=== PATIENT | female | born 1970 | race Caucasian/White ===

== ENCOUNTER → 2024-03-19 11:18 | Outpatient (REF) | payer MEDICARE, OTHER, SELFPAY ==
[2024-03-19 14:54] LABS: Folate > 20.0 ng/ml (2.76-20); Vitamin B12 > 1000 pg/ml (239-931)
== END ==
LOC: REG 11:18
PROVIDERS: ATTENDING PHYSICIAN Psychiatry & Neurology Neurology; FAMILY PHYSICIAN Family Medicine
DX: G43.709 Chronic migraine without aura, not intractable, without status migrainosus (principal); M54.50 Low back pain, unspecified; G43.109 Migraine with aura, not intractable, without status migrainosus; M54.12 Radiculopathy, cervical region; M79.7 Fibromyalgia; F90.1 Attention-deficit hyperactivity disorder, predominantly hyperactive type; D51.8 Other vitamin B12 deficiency anemias; E55.9 Vitamin D deficiency, unspecified; D51.0 Vitamin B12 deficiency anemia due to intrinsic factor deficiency
CPT/HCPCS: 36415; 82607; 82746; 86340

== ENCOUNTER → 2024-03-26 11:16 | Outpatient (REF) | payer MEDICARE, OTHER, SELFPAY | LOC: HWRAD 11:16 | PROVIDERS: ATTENDING PHYSICIAN Registered Nurse Case Management; FAMILY PHYSICIAN Family Medicine | DX: Z13.820 Encounter for screening for osteoporosis (principal); Z12.31 Encounter for screening mammogram for malignant neoplasm of breast; Z78.0 Asymptomatic menopausal state | CPT/HCPCS: 77063; 77067; 77080 ==

== ENCOUNTER → 2024-04-28 10:10 | Outpatient (REF) | payer MEDICARE, OTHER, SELFPAY | LOC: WDC 10:10 | PROVIDERS: ATTENDING PHYSICIAN Registered Nurse Case Management; FAMILY PHYSICIAN Family Medicine | DX: R92.8 Other abnormal and inconclusive findings on diagnostic imaging of breast (principal) | CPT/HCPCS: 76642; 77065 ==